=== PATIENT | male | born 1975 | race Caucasian/White ===

== ENCOUNTER 2018-05-05 08:40 | Emergency (ER) | payer OTHER, SELFPAY ==
[2018-05-05 08:43] VITALS: BP 127/92; PULSE 123; RESP 18; TEMP 36.8; O2SAT 97
--- NOTE | 2018-05-05 08:58 | DI.CT_ITS ---
SYMPTOMS/DIAGNOSIS: SHILPI'S ANGINA, LEFT MOUTH ABSCESS CT SCAN OF THE NECK: CT scan of the neck was performed following the uneventful administration of intravenous contrast material. There is a large air-fluid collection seen in the neck. The left masseter muscle is involved. It is enlarged and contains collections of air and fluid. The fluid collection then extends inferiorly along the left mandible, tracks into the soft tissues under the jaw and then extends superiorly to involve the right parapharyngeal space. The right masseter muscle appears unremarkable. This appears to be consistent with an abscess. The abscess involves the suprahyoid muscles. The mylohyoid muscles appear intact but medially displaced bilaterally. The abscess does appear to involve both right and left parapharyngeal spaces. The abscess is continuous, measuring 8.4 cm craniocaudally on the left and 7.1 cm transversely inferior to the mandible. There is inflammatory stranding in the adjacent soft tissues. There is thickening of both the adjacent platysma muscles, left greater than right. The submandibular glands and parotid glands appear unremarkable. The bones are intact. There is moderate narrowing of the airway at the level of the uvula. Moderately enlarged lymph nodes are seen in the neck, which are likely reactive. The retropharyngeal space is unremarkable. The thyroid gland is unremarkable. The lung apices are clear. IMPRESSION: 1. Air-fluid collection in the neck consistent with an abscess. The abscess has a U-shaped appearance. There is a large component of the abscess involving the left masseter muscle. The abscess then extends inferiorly and crosses the midline beneath the mandible and tracks superiorly to the level of the right parapharyngeal space. It measures at least 15 cm in length. 2. There is moderate narrowing of the airway at the level of the uvula. 3. Enlarged lymph nodes in the neck, which are likely reactive. These findings were discussed with Dr. Hamilton of the Emergency Department on the date of the examination.
[2018-05-05 09:20] LABS: Lactate-non-spesis 1.4 mmol/L (0.6-1.4)
[2018-05-05 09:23] LABS: Absolute Eosinophil Count 0.03 k/cumm (0.0-0.7); Basophils % 0.1; Eosinophils % 0.2; HCT 44.7 % (40.0-50.0); HGB 15.5 g/dL (13.5-17.5); Immature Grans % 1.2; Mean Corp. HGB Concentration 34.7 g/dL (32.0-36.0); Mean Corpuscular Hemoglobin 30.6 pg (27.0-33.0); Mean Corpuscular Volume 88.3 fL (80-95); Mean Platelet Volume 9.8 fL (8.0-11.0); RBC 5.06 m/cumm (4.50-6.00); RBC Distribution Width 14.5 % (11.8-14.1); White Blood Cell Count 16.19 k/cumm (4.4-10.8)
[2018-05-05 09:27] LABS: Absolute Basophil Count 0.02 k/cumm (0.0-0.2)
[2018-05-05] MEDS: AMPICILLIN/SULBACTAM 3 GM in Normal Saline 100 ML IVPB (09:29)
[2018-05-05] MEDS: Normal Saline 1,000 ML 1000 ML IV (09:29)
--- NOTE | 2018-05-05 09:30 | W.ED.GENAD ---
Discharge Plan Disposition Patient Disposition: [facility] Condition: Stable Discharge Details Chief Complaint: DentalOral Clinical Impression: Angina, Jarod, Abscess, dental Primary Care Provider: Channing Fraga ED Provider: Adan Hamilton Home Meds and New Rx's Prescriptions: No Action albuterol sulfate 1.25 MG/3 ML solution for nebulization 1.25 mg Inhalation Q4H PRN Qty: 1 RF: 3 albuterol sulfate [ProAir HFA] 8.5 GM HFA aerosol inhaler 2 puff Inhalation Q6H PRN Qty: 3 RF: 4 fluticasone [Flovent HFA] 12 GM HFA aerosol inhaler 2 puff Inhalation BID Qty: 3 RF: 4 amoxicillin 500 mg capsule 500 mg PO TID Qty: 30 RF: 0 Discharge Data Discharge Date/Time-TO BE ENTERED AT DEPARTURE: 05/05/18 11:57 Medical Decision Making This is a 42-year-old male who presents for dental pain. He has been on amoxicillin for 5 days and has had worsening of the swelling. He has had subjective fevers and consistent chills. Physical exam demonstrates notable swelling on his left cheek extending down to the submandibular region and the left side of his neck. He is unable to fully open his mouth secondary to the swelling and pain. The patient is tachycardic, and shows signs and symptoms concerning for Jarod's angina and notable very dental abscess. Because of the significant size of the swelling and my inability to have the patient open his mouth for complete visualization of potential abscess area I do feel that a CT scan is certainly indicated especially with the close proximity to the patient's airway. We will start the patient on Unasyn secondary to his failed outpatient antibiotic therapy, as well as IV fluids, and laboratory workup with the signs and symptoms concerning for potential sepsis. 11:07 AM We have no ENT coverage here, CT results demonstrate a notable at 15 cm abscess in his left jaw extending to his right neck. Airway is stable at this time. No signs of significant airway compromise. The patient is comfortable with no tachypnea, he is able to control his secretions. We discussed the case with her surgeon marketing information coordinator and she would prefer ENT management for the patient she does not feel comfortable with the patient at this time for surgical abscess incision and drainage. I discussed the case with [facility] they agreed to accept the patient. Patient will be transferred to the [facility] emergency department under Dr. Burch. At time of transfer the patient continues to demonstrate excellent control of his airway, no significant difficulty controlling secretions. No stridor, no signs of airway compromise at this time. I did discuss with the patient potential intubation prior to transfer, due to the unlikely but potential scenario where his airway worsened while being transported, the patient made it extremely clear that there is no way you are intubating me now. Because the airway is clear, the patient does appear very stable I feel that this is potentially reasonable at this time. Patient will be transferred by [facility]. I have extensively reviewed the treatment plan with the patient. I have addressed all patient concerns at this time. I have also discussed the plan with the admitting physician and they agree with the current assessment and plan and have agreed to assume responsibility for the patient. All parties demonstrate verbal understanding and agreement with our assessment and plan at this time. 1. Air-fluid collection in the neck consistent with an abscess. The abscess has a U-shaped appearance. There is a large component of the abscess involving the left masseter muscle. The abscess then extends inferiorly and crosses the midline beneath the mandible and tracks superiorly to the level of the right parapharyngeal space. It measures at least 15 cm in length. 2. There is moderate narrowing of the airway at the level of the uvula. 3. Enlarged lymph nodes in the neck, which are likely reactive. HPI General Date/Time Provider Initiated Documentation: 05/05/18 08:58. HPI Narrative: This is a 42-year-old male with a past medical history of asthma who presents today for evaluation of dental pain. Patient states that on Tuesday, 5 days ago he developed left lower tooth pain, he went and saw his dentist and his primary care provider, he was started on amoxicillin for swelling, and told to follow-up with his dentist again when the swelling had improved. He has been taking the amoxicillin religiously but is noted a continued increase in the swelling in his left cheek that has now spread to under his jaw and around his throat. He is unable to open his jaw, and has notable pain with opening. He denies a severe pain otherwise. He admits to drainage in the inside of his mouth, which he states is purulent and putrid. He states he is able to swallow well still, denies any difficulty controlling his secretions. He denies any chest pain, shortness of breath or difficulty breathing. He does admit to chills and fevers which he states is well controlled with Tylenol and Motrin. He denies any headache, numbness or tingling, eye pain, posterior neck pain, or other complaints. Related Data Home Medications Medication Instructions Recorded Confirmed albuterol sulfate 1.25 mg INHALATION Q4H PRN #1 box 06/18/14 05/05/18 albuterol sulfate [Proair Hfa] 2 puff INHALATION Q6H PRN #3 05/23/17 05/05/18 inhaler fluticasone [Flovent 110mcg] 2 puff INHALATION BID #3 inhaler 05/23/17 05/05/18 amoxicillin 500 mg capsule 500 mg PO TID #30 cap 05/02/18 05/05/18 Previous Rx's Medication Instructions Recorded albuterol sulfate [Proair Hfa] 2 puff INHALATION Q6H PRN #3 05/23/17 inhaler fluticasone [Flovent 110mcg] 2 puff INHALATION BID #3 inhaler 05/23/17 amoxicillin 500 mg capsule 500 mg PO TID #30 cap 05/02/18 Allergies Allergy/AdvReac Type Severity Reaction Status Date / Time DUST Allergy Unknown Uncoded 05/05/18 09:39 MOLDS AND SMUTS Allergy Unknown Uncoded 05/05/18 09:39 SEAFOOD Allergy Unknown Uncoded 05/05/18 09:39 General Stated Complaint: DentalOral HOOD: 4 Review of Systems Review of Systems All systems reviewed & are unremarkable except as noted in HPI and below PFSH Family History Mother No problems noted. Father No problems noted. Grandfather No problems noted. Grandfather No problems noted. Grandmother No problems noted. Grandmother Personal history of malignant neoplasm Social History Smoking/Tobacco Use Status: Current every day Exam Narrative Exam Narrative: 1.Const: Well-nourished, Well-developed, appearing stated age 2.Eyes: PERRL, no conjunctival injection, and symmetrical lids. 3.ENT: Atraumatic external nose and ears. Moist MM. Neck: aSymmetric, trachea midline, No thyromegaly. Patient does have notable swelling in his left cheek, trismus in his jaw, and swelling in his left mandible, and the infraglottic region and submandibular region. Mild swelling on the left side of the trachea. No carotid bruits. Ear exam demonstrates no signs of infection, or discharge behind the tympanic membranes. Oral exam is challenging secondary to the patient's trismus and inability to open his jaw well. Notable swelling, no focal drainage is visible, however significant tenderness on palpation of the left cheek. No severe dental caries is present. Uvula is midline. No large peritonsillar abscess. Patient is controlling his secretions well, no signs of significant airway compromise at this time. No stridor or difficulty breathing. 4.CVS: +S1/S2, tachycardic, no murmurs or gallops. Peripheral pulses 2+ and equal in all extremities. Brisk capillary refill in all extremities. 5.RESP: Unlabored respiratory effort. Clear to auscultation bilaterally. No wheezes rales or rhonchi 6.GI: Soft, Nontender/Nondistended, No hepatosplenomegaly. No guarding or rebound. 7.MSK: Normocephalic/Atraumatic, Extremities w/o deformity or ttp No cyanosis or clubbing, Normal movement of all extremities 8.Skin: Warm, Dry. No rashes or lesions. 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 Sensation grossly intact, no focal neurologic deficits. 10.Psych: (AAO) x3. Appropriate mood and affect Course Vital Signs Temperature 36.8 C 05/05/18 08:43 Pulse 123 H 05/05/18 08:43 Respiratory Rate 18 05/05/18 08:43 Blood Pressure 127/92 H 05/05/18 08:43 Pulse Oximetry 97 05/05/18 08:43 Temperature 36.8 C 05/05/18 08:43 Temperature Source Temporal Artery Scan 05/05/18 08:43 Pulse 123 H 05/05/18 08:43 Respiratory Rate 18 05/05/18 08:43 Blood Pressure 127/92 H 05/05/18 08:43 Pulse Oximetry 97 05/05/18 08:43 Oxygen Delivery Method Room Air 05/05/18 08:43 Oxygen Flow Rate 0 05/05/18 08:43 Pain Level 4 05/05/18 08:43 Lab/Test Results Lab/Test Results: 05/05/18 09:05 Blood Blood Culture - Pending 05/05/18 08:59 Blood Blood Culture - Pending Laboratory Tests Range/Units 05/05/18 05/05/18 09:05 09:05 WBC (4.4-10.8) k/cumm 16.19 H RBC (4.50-6.00) m/cumm 5.06 Hgb (13.5-17.5) g/dL 15.5 Hct (40.0-50.0) % 44.7 MCV (80-95) fL 88.3 MCH (27.0-33.0) pg 30.6 MCHC (32.0-36.0) g/dL 34.7 RDW (11.8-14.1) % 14.5 H Plt Count (130-400) x1000/uL 260 MPV (8.0-11.0) fL 9.8 Immature Gran % 1.2 Neutrophils % 77.5 Lymphocytes % 3.8 Monocytes % 17.2 Eosinophils % 0.2 Basophils % 0.1 Absolute Neutrophils (1.2-6.7) k/cumm 12.55 H Absolute Lymphocytes (1.2-3.4) k/cumm 0.62 L Absolute Monocytes (0.11-0.7) k/cumm 2.78 H Absolute Eosinophils (0.0-0.7) k/cumm 0.03 Absolute Basophils (0.0-0.2) k/cumm 0.02 Lactate (0.6-1.4) mmol/L 1.4
[2018-05-05 09:31] LABS: ALT 38 U/L (12-78); AST 30 U/L (15-37); Alkaline Phosphatase 94 U/L (46-116); Anion Gap 16.7 mmol/L (3-11); BUN 23 mg/dL (7-18); Bilirubin, Total 0.9 mg/dL (0.2-1.0); CO2 21.3 mmol/L (21.0-32.0); CREATININE 2.35 mg/dL (0.70-1.30); Calcium 9.3 mg/dL (8.5-10.1); Chloride 98 mmol/L (98-107); Estimated GFR 30.72 (mL/min/1.73m2); Glucose 138 mg/dL (70-100); Potassium 3.6 mmol/L (3.5-5.1); Sodium 136 mmol/L (136-145); Total Protein 8.2 g/dL (6.4-8.2)
--- NOTE | 2018-05-05 09:36 | ED.GENADUL_ITS ---
Discharge Plan Disposition Patient Disposition: [facility] Condition: Stable Discharge Details Chief Complaint: DentalOral Clinical Impression: Angina, Jarod, Abscess, dental Primary Care Provider: Channing Fraga ED Provider: Adan Hamilton Home Meds and New Rx's Prescriptions: No Action albuterol sulfate 1.25 MG/3 ML solution for nebulization 1.25 mg Inhalation Q4H PRN Qty: 1 RF: 3 albuterol sulfate [ProAir HFA] 8.5 GM HFA aerosol inhaler 2 puff Inhalation Q6H PRN Qty: 3 RF: 4 fluticasone [Flovent HFA] 12 GM HFA aerosol inhaler 2 puff Inhalation BID Qty: 3 RF: 4 amoxicillin 500 mg capsule 500 mg PO TID Qty: 30 RF: 0 Discharge Data Discharge Date/Time-TO BE ENTERED AT DEPARTURE: 05/05/18 11:57 Medical Decision Making This is a 42-year-old male who presents for dental pain. He has been on amoxicillin for 5 days and has had worsening of the swelling. He has had subjective fevers and consistent chills. Physical exam demonstrates notable swelling on his left cheek extending down to the submandibular region and the left side of his neck. He is unable to fully open his mouth secondary to the swelling and pain. The patient is tachycardic, and shows signs and symptoms concerning for Ajrod's angina and notable very dental abscess. Because of the significant size of the swelling and my inability to have the patient open his mouth for complete visualization of potential abscess area I do feel that a CT scan is certainly indicated especially with the close proximity to the patient' s airway. We will start the patient on Unasyn secondary to his failed outpatient antibiotic therapy, as well as IV fluids, and laboratory workup with the signs and symptoms concerning for potential sepsis. 11:07 AM We have no ENT coverage here, CT results demonstrate a notable at 15 cm abscess in his left jaw extending to his right neck. Airway is stable at this time. No signs of significant airway compromise. The patient is comfortable with no tachypnea, he is able to control his secretions. We discussed the case with her surgeon transmission specialist and she would prefer ENT management for the patient she does not feel comfortable with the patient at this time for surgical abscess incision and drainage. I discussed the case with [facility] they agreed to accept the patient. Patient will be transferred to the [facility] emergency department under Dr. Burch. At time of transfer the patient continues to demonstrate excellent control of his airway, no significant difficulty controlling secretions. No stridor, no signs of airway compromise at this time. I did discuss with the patient potential intubation prior to transfer, due to the unlikely but potential scenario where his airway worsened while being transported, the patient made it extremely clear that there is no way you are intubating me now. Because the airway is clear, the patient does appear very stable I feel that this is potentially reasonable at this time. Patient will be transferred by [facility]. I have extensively reviewed the treatment plan with the patient. I have addressed all patient concerns at this time. I have also discussed the plan with the admitting physician and they agree with the current assessment and plan and have agreed to assume responsibility for the patient. All parties demonstrate verbal understanding and agreement with our assessment and plan at this time. 1. Air-fluid collection in the neck consistent with an abscess. The abscess has a U-shaped appearance. There is a large component of the abscess involving the left masseter muscle. The abscess then extends inferiorly and crosses the midline beneath the mandible and tracks superiorly to the level of the right parapharyngeal space. It measures at least 15 cm in length. 2. There is moderate narrowing of the airway at the level of the uvula. 3. Enlarged lymph nodes in the neck, which are likely reactive. HPI General Date/Time Provider Initiated Documentation: 05/05/18 08:58 . HPI Narrative: This is a 42-year-old male with a past medical history of asthma who presents today for evaluation of dental pain. Patient states that on Tuesday, 5 days ago he developed left lower tooth pain, he went and saw his dentist and his primary care provider, he was started on amoxicillin for swelling, and told to follow-up with his dentist again when the swelling had improved. He has been taking the amoxicillin religiously but is noted a continued increase in the swelling in his left cheek that has now spread to under his jaw and around his throat. He is unable to open his jaw, and has notable pain with opening. He denies a severe pain otherwise. He admits to drainage in the inside of his mouth, which he states is purulent and putrid. He states he is able to swallow well still, denies any difficulty controlling his secretions. He denies any chest pain, shortness of breath or difficulty breathing. He does admit to chills and fevers which he states is well controlled with Tylenol and Motrin. He denies any headache, numbness or tingling, eye pain, posterior neck pain, or other complaints. Related Data Home Medications Medication Instructions Recorded Confirmed albuterol sulfate 1.25 mg INHALATION Q4H PRN #1 box 06/18/14 05/05/18 albuterol sulfate [Proair Hfa] 2 puff INHALATION Q6H PRN #3 05/23/17 05/05/18 inhaler fluticasone [Flovent 110mcg] 2 puff INHALATION BID #3 inhaler 05/23/17 05/05/18 amoxicillin 500 mg capsule 500 mg PO TID #30 cap 05/02/18 05/05/18 Previous Rx's Medication Instructions Recorded albuterol sulfate [Proair Hfa] 2 puff INHALATION Q6H PRN #3 05/23/17 inhaler fluticasone [Flovent 110mcg] 2 puff INHALATION BID #3 inhaler 05/23/17 amoxicillin 500 mg capsule 500 mg PO TID #30 cap 05/02/18 Allergies Allergy/AdvReac Type Severity Reaction Status Date / Time DUST Allergy Unknown Uncoded 05/05/18 09:39 MOLDS AND SMUTS Allergy Unknown Uncoded 05/05/18 09:39 SEAFOOD Allergy Unknown Uncoded 05/05/18 09:39 General Stated Complaint: DentalOral HOOD: 4 Review of Systems Review of Systems All systems reviewed & are unremarkable except as noted in HPI and below PFSH Family History Mother No problems noted. Father No problems noted. Grandfather No problems noted. Grandfather No problems noted. Grandmother No problems noted. Grandmother Personal history of malignant neoplasm Social History Smoking/Tobacco Use Status: Current every day Exam Narrative Exam Narrative: 1.Const: Well-nourished, Well-developed, appearing stated age 2.Eyes: PERRL, no conjunctival injection, and symmetrical lids. 3.ENT: Atraumatic external nose and ears. Moist MM. Neck: aSymmetric, trachea midline, No thyromegaly. Patient does have notable swelling in his left cheek, trismus in his jaw, and swelling in his left mandible, and the infraglottic region and submandibular region. Mild swelling on the left side of the trachea. No carotid bruits. Ear exam demonstrates no signs of infection, or discharge behind the tympanic membranes. Oral exam is challenging secondary to the patient's trismus and inability to open his jaw well. Notable swelling, no focal drainage is visible, however significant tenderness on palpation of the left cheek. No severe dental caries is present. Uvula is midline. No large peritonsillar abscess. Patient is controlling his secretions well, no signs of significant airway compromise at this time. No stridor or difficulty breathing. 4.CVS: +S1/S2, tachycardic, no murmurs or gallops. Peripheral pulses 2+ and equal in all extremities. Brisk capillary refill in all extremities. 5.RESP: Unlabored respiratory effort. Clear to auscultation bilaterally. No wheezes rales or rhonchi 6.GI: Soft, Nontender/Nondistended, No hepatosplenomegaly. No guarding or rebound. 7.MSK: Normocephalic/Atraumatic, Extremities w/o deformity or ttp No cyanosis or clubbing, Normal movement of all extremities 8.Skin: Warm, Dry. No rashes or lesions. 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 Sensation grossly intact, no focal neurologic deficits. 10.Psych: (AAO) x3. Appropriate mood and affect Course Vital Signs Temperature 36.8 C 05/05/18 08:43 Pulse 123 H 05/05/18 08:43 Respiratory Rate 18 05/05/18 08:43 Blood Pressure 127/92 H 05/05/18 08:43 Pulse Oximetry 97 05/05/18 08:43 Temperature 36.8 C 05/05/18 08:43 Temperature Source Temporal Artery Scan 05/05/18 08:43 Pulse 123 H 05/05/18 08:43 Respiratory Rate 18 05/05/18 08:43 Blood Pressure 127/92 H 05/05/18 08:43 Pulse Oximetry 97 05/05/18 08:43 Oxygen Delivery Method Room Air 05/05/18 08:43 Oxygen Flow Rate 0 05/05/18 08:43 Pain Level 4 05/05/18 08:43 Lab/Test Results Lab/Test Results: 05/05/18 09:05 Blood Blood Culture - Pending 05/05/18 08:59 Blood Blood Culture - Pending Laboratory Tests Range/Units 05/05/18 05/05/18 09:05 09:05 WBC (4.4-10.8) k/cumm 16.19 H RBC (4.50-6.00) m/cumm 5.06 Hgb (13.5-17.5) g/dL 15.5 Hct (40.0-50.0) % 44.7 MCV (80-95) fL 88.3 MCH (27.0-33.0) pg 30.6 MCHC (32.0-36.0) g/dL 34.7 RDW (11.8-14.1) % 14.5 H Plt Count (130-400) x1000/uL 260 MPV (8.0-11.0) fL 9.8 Immature Gran % 1.2 Neutrophils % 77.5 Lymphocytes % 3.8 Monocytes % 17.2 Eosinophils % 0.2 Basophils % 0.1 Absolute Neutrophils (1.2-6.7) k/cumm 12.55 H Absolute Lymphocytes (1.2-3.4) k/cumm 0.62 L Absolute Monocytes (0.11-0.7) k/cumm 2.78 H Absolute Eosinophils (0.0-0.7) k/cumm 0.03 Absolute Basophils (0.0-0.2) k/cumm 0.02 Lactate (0.6-1.4) mmol/L 1.4
[2018-05-05 09:50] LABS: Absolute Lymphocyte Count 0.65 k/cumm (1.2-3.4); Absolute Neutrophil Count 14.09 k/cumm (1.2-6.7); Atypical Lymphocytes % 2
[2018-05-05 09:52] LABS: Platelet Count 260 x1000/uL (130-400); RBC Morphology Normal
[2018-05-05 09:53] LABS: Diff Comment Manual Differential
--- NOTE | 2018-05-05 11:26 | NUR.NOTE ---
Verbal report to Aurora GARCIA at [facility] Note:
[2018-05-05 11:30] VITALS: BP 138/80; PULSE 88; RESP 18; TEMP 36.9; O2SAT 99
== END 2018-05-05 11:57 | disposition short-term general hospital (02) ==
LOC: ER 10:31
PROVIDERS: Emergency Provider Student in an Organized Health Care Education/Training Program; PCP Family Medicine
DX: K12.2 Cellulitis and abscess of mouth (principal); K04.7 Periapical abscess without sinus
CPT/HCPCS: 36415; 70491; 80053; 87040; 96361; 96365; 99285; 83605; 85025; J0295

== ENCOUNTER 2020-11-07 03:05 | Outpatient (CLI) | payer BC, SELFPAY ==
[2020-11-08 13:43] LABS: COVID-19 RT-PCR UVMMC Result Negative (Negative)
== END 2020-11-07 03:06 | disposition home or self-care (01) ==
LOC: LBO 03:05
PROVIDERS: Visit Provider Nurse Practitioner Family
DX: Z20.822 Contact with and (suspected) exposure to COVID-19 (principal)
CPT/HCPCS: U0003

== ENCOUNTER 2024-08-13 17:17 | Outpatient (REF) | payer BC, SELFPAY ==
[2024-08-13 17:49] LABS: Calculated LDL 115 mg/dL (<100); Cholesterol 191 mg/dL (<200); HDL Cholesterol 56 mg/dL (40-60); Triglyceride 102 mg/dL (<150)
[2024-08-13 17:52] LABS: Hemoglobin A1C 6.2 % (<5.7)
== END 2024-08-13 17:18 | disposition home or self-care (01) ==
LOC: NCHCN 17:17
PROVIDERS: PCP Nurse Practitioner Family; Visit Provider Nurse Practitioner Family
DX: Z13.1 Encounter for screening for diabetes mellitus (principal); Z13.220 Encounter for screening for lipoid disorders
CPT/HCPCS: 80061; 83036